=== PATIENT | male | born 1980 | race African-American/Black ===

== ENCOUNTER 2020-12-23 05:41 | Emergency (ER) | payer OTHER ==
[2020-12-23] MEDS ORDERED: IBUPROFEN 400 MG TABLET (FP) PO ONE ×2 (06:04→06:14)
[2020-12-23 06:05] VITALS: BP 178/64; PULSE 62; TEMP 98.2; BMI 26.4
[2020-12-23] MEDS ORDERED: AMOX TR/POT CLAV 875MG/125MG TABLETS (FP) PO ONE (06:06)
[2020-12-23] MEDS ORDERED: AMOX TR/POT CLAV 875MG/125MG TABLETS (FP) ONE (06:14)
== END 2020-12-23 06:42 ==
LOC: JER 05:41
DX: K08.89 Other specified disorders of teeth and supporting structures (principal); K04.7 Periapical abscess without sinus
CPT/HCPCS: 99283-25